=== PATIENT | male | born 1995 | race Caucasian/White ===

== ENCOUNTER 2024-03-15 19:58 | Emergency (ER) | payer OTHER ==
[~2024-03-15] VITALS: Ht 167.6 cm; Wt 64.0 kg
[2024-03-15 20:14] VITALS: BP 148/94; PULSE 115; RESP 20; TEMP 98.8; O2SAT 99
== END 2024-03-15 22:07 | disposition left against medical advice (07) ==
LOC: EMS 19:58
DX: R07.9 Chest pain, unspecified (principal); Z53.21 Procedure and treatment not carried out due to patient leaving prior to being seen by health care provider
CPT/HCPCS: 93005